=== PATIENT | female | born 1985 | race Caucasian/White ===

== ENCOUNTER → 2020-02-24 09:02 | Outpatient (CLI) | payer BC, SELFPAY ==
[2020-02-24 10:13] LABS: Add Manual Diff / Slide Review NO; Basophils Absolute Auto 0 /uL (0-100); Basophils Percent Auto 0.4 % (0-2); Eosinophils Absolute Auto 100 /uL (0-450); Eosinophils Percent Auto 1.2 % (2-4); Hemoglobin 14.1 g/dL (12.0-16.0); Lymphocytes Absolute Auto 1900 /uL (1100-4500); Lymphocytes Percent Auto 22.1 % (25-40); Mean Corpuscular HGB Conc 34.3 % (30-36); Mean Corpuscular Hemoglobin 30.6 PG (26-34); Mean Corpuscular Volume 89.2 fL (80-100); Monocytes Absolute Auto 600 /uL (0-900); Monocytes Percent Auto 7.3 % (3-14); Neutrophils Absolute Auto 5900 /uL (1500-7000); Platelet Count 273 X10^3/uL (150-400); Red Cell Distribution Width 13.2 % (11.6-14.8); White Blood Cell Count 8.6 X10^3/uL (4.5-11.0)
[2020-02-24 10:43] LABS: Alanine Aminotransferase 35 IU/L (<35); Albumin Globulin Ratio 1.2 (1.0-2.8); Alkaline Phosphatase 84 U/L (38-126); Aspartate Aminotransferase 27 IU/L (14-36); BUN Creatinine Ratio 11.9 (6-22); Bilirubin Total 0.4 mg/dL (0.2-1.3); Blood Urea Nitrogen 7 mg/dL (7-17); Carbon Dioxide 27 mmol/L (22-32); Chloride 105 mmol/L (98-107); Cholesterol 221 mg/dL (140-199); Estimated Glomerular Filt Rate > 60.0 mL/min (>60); Globulin 3.3 g/dL (1.7-4.1); Glucose 98 mg/dL (70-100); HDL Cholesterol 81 mg/dL (40-60); HEMOLYSIS < 15 (0-50); LDL Cholesterol Calculated 120 mg/dL (<100); Potassium 4.6 mmol/L (3.4-5.1); Sodium 136 mmol/L (137-145); Total Protein 7.3 g/dL (6.3-8.2); Triglycerides 101 mg/dL (35-150)
[2020-02-24 11:05] LABS: Free T4, Direct Thyroxine 0.87 ng/dL (0.78-2.19)
[2020-02-24 11:19] LABS: Thyroid Stimulating Hormone 1.43 uIU/mL (0.47-4.68)
== END ==
PROVIDERS: PCP Registered Nurse; Referring Provider Registered Nurse; Visit Provider Registered Nurse
DX: F41.8 Other specified anxiety disorders (principal); Z79.899 Other long term (current) drug therapy; Z82.49 Family history of ischemic heart disease and other diseases of the circulatory system
CPT/HCPCS: 36415; 80053; 80061; 84439; 84443; 85025

== ENCOUNTER → 2020-03-03 09:31 | Outpatient (CLI) | payer BC, SELFPAY ==
[2020-03-03 10:51] LABS: COVID19 -Nasal RAPID Negative (Negative)
== END ==
PROVIDERS: PCP Registered Nurse; Visit Provider Nurse Practitioner
DX: Z20.828 Contact with and (suspected) exposure to other viral communicable diseases (principal); R05 Cough
CPT/HCPCS: 87635

== ENCOUNTER → 2020-04-14 09:21 | Outpatient (CLI) | payer BC, SELFPAY ==
--- NOTE | 2020-04-14 09:24 | DI.US.S_ITS ---
PROCEDURE: US PELVIC COMPLETE INDICATIONS: ENDOMETRIOSIS TECHNIQUE: Real-time scanning was performed of the pelvic organs, with image documentation. Additional endovaginal scanning was necessary due to incomplete visualization of the adnexal and endometrial structures by transabdominal scanning. COMPARISON: None. FINDINGS: Uterus: Uterus is normal in size at 6.1 x 3.6 x 2.5 cm. The endometrium measures 5 mm in combined thickness. Ovaries: The right ovary measures 2.9 x 2.1 x 1.7 cm. The left ovary measures 3.9 x 1.4 x 1.5 cm. The ovaries have a normal sonographic appearance. No adnexal masses are seen. Normal appearing arterial waveforms are confirmed to each ovary. Other: No pathologic free abdominal or pelvic fluid. IMPRESSION: Unremarkable pelvic ultrasound. Normal appearing ovaries. No lolis endometriomas can be seen. Dictated by: Marcell Matthews M.D. on 04/14/2020 at 10:00 Approved by: Marcell Matthews M.D. on 04/14/2020 at 10:01
== END ==
PROVIDERS: PCP Registered Nurse; Referring Provider Obstetrics & Gynecology; Visit Provider Obstetrics & Gynecology
DX: N80.9 Endometriosis, unspecified (principal); Z87.42 Personal history of other diseases of the female genital tract
CPT/HCPCS: 76830; 76856

== ENCOUNTER → 2020-04-16 12:19 | Outpatient (CLI) | payer BC, SELFPAY ==
--- NOTE | 2020-04-16 12:27 | DI.RAD.S_ITS ---
PROCEDURE: XR ELBOW LT MIN 3V INDICATIONS: pain TECHNIQUE: 3 views of the elbow were acquired. COMPARISON: None. FINDINGS: Bones: No fractures or dislocations. No suspicious bony lesions. Soft tissues: No elbow joint effusion. No suspicious soft tissue calcifications. IMPRESSION: Normal left elbow Dictated by: Carlos Melgar M.D. on 04/16/2020 at 12:53 Approved by: Carlos Melgar M.D. on 04/16/2020 at 12:54
--- NOTE | 2020-04-16 12:27 | DI.RAD.S_ITS ---
PROCEDURE: XR SHOULDER RT MIN 2V INDICATIONS: right shoulder pain TECHNIQUE: 3 views of the shoulder were acquired. COMPARISON: None. FINDINGS: Bones: No fractures or dislocations. No suspicious bony lesions. Visualized ribs appear intact. Soft tissues: No suspicious soft tissue calcifications. IMPRESSION: Normal right shoulder Dictated by: Carlos Melgar M.D. on 04/16/2020 at 12:54 Approved by: Carlos Melgar M.D. on 04/16/2020 at 12:55
--- NOTE | 2020-04-16 12:27 | DI.RAD.S_ITS ---
PROCEDURE: XR ELBOW RT MIN 3V INDICATIONS: pain TECHNIQUE: 3 views of the elbow were acquired. COMPARISON: None. FINDINGS: Bones: No fractures or dislocations. No suspicious bony lesions. Soft tissues: No elbow joint effusion. No suspicious soft tissue calcifications. IMPRESSION: Normal right elbow. Dictated by: Carlos Melgar M.D. on 04/16/2020 at 12:52 Approved by: Carlos Melgar M.D. on 04/16/2020 at 12:53
[2020-04-16 13:35] LABS: Alanine Aminotransferase 15 IU/L (<35); Albumin 4.2 g/dL (3.5-5.0); Albumin Globulin Ratio 1.2 (1.0-2.8); Alkaline Phosphatase 88 U/L (38-126); Aspartate Aminotransferase 24 IU/L (14-36); BUN Creatinine Ratio 12.7 (6-22); Bilirubin Total 0.4 mg/dL (0.2-1.3); Blood Urea Nitrogen 8 mg/dL (7-17); C-Reactive Protein Quant 1.1 mg/dL (<1.0); Calcium 8.9 mg/dL (8.4-10.2); Carbon Dioxide 25 mmol/L (22-32); Chloride 105 mmol/L (98-107); Estimated Glomerular Filt Rate > 60.0 mL/min (>60); Globulin 3.6 g/dL (1.7-4.1); Glucose 95 mg/dL (70-100); HEMOLYSIS < 15 (0-50); Potassium 4.1 mmol/L (3.4-5.1); Sodium 136 mmol/L (137-145); Total Protein 7.8 g/dL (6.3-8.2)
[2020-04-16 13:42] LABS: Rheumatoid Factor < 8.6 IU/mL (<12.0)
[2020-04-16 13:47] LABS: Erythrocyte Sedimentation Rate 11 MM/HR (0-20)
[2020-04-19 14:43] LABS: ANA Screen, IFA Negative (.)
== END ==
PROVIDERS: PCP Registered Nurse; Referring Provider Registered Nurse; Visit Provider Registered Nurse
DX: M25.521 Pain in right elbow (principal); M25.511 Pain in right shoulder; M25.522 Pain in left elbow; M25.50 Pain in unspecified joint; R74.8 Abnormal levels of other serum enzymes
CPT/HCPCS: 36415; 73030; 73080; 80053; 85651; 86038; 86140; 86430

== ENCOUNTER → 2020-06-18 07:26 | Outpatient (CLI) | payer BC, SELFPAY ==
[2020-06-18 09:50] LABS: Cholesterol 147 mg/dL (140-199); HDL Cholesterol 84 mg/dL (40-60); LDL Cholesterol Calculated 43 mg/dL (<100); Triglycerides 99 mg/dL (35-150)
== END ==
PROVIDERS: PCP Registered Nurse; Referring Provider Registered Nurse; Visit Provider Registered Nurse
DX: Z82.49 Family history of ischemic heart disease and other diseases of the circulatory system (principal)
CPT/HCPCS: 36415; 80061

== ENCOUNTER → 2020-10-08 17:33 | Outpatient (CLI) | payer BC, SELFPAY ==
[2020-10-08 19:04] LABS: COVID19 -Nasal RAPID Negative (Negative)
== END ==
PROVIDERS: PCP Registered Nurse; Referring Provider Physician Assistant; Visit Provider Physician Assistant
DX: Z20.822 Contact with and (suspected) exposure to COVID-19 (principal)
CPT/HCPCS: 87635

== ENCOUNTER 2021-02-27 12:54 | Emergency (ER) | payer BC, SELFPAY ==
[2021-02-27 13:01] VITALS: BP 157/95; PULSE 133; RESP 18; TEMP 36.2; O2SAT 99; BMI 32.5
[2021-02-27] MEDS: SODIUM CHLORIDE 0.9% 1,000 ML 1000 ML IV (13:12)
[2021-02-27] MEDS: ONDANSETRON 4 MG/2 ML INJ IV (13:12)
--- NOTE | 2021-02-27 13:14 | ED_ITS ---
HPI - Nausea/Vomiting/Diarrhea <Tigre Small PA-C - Last Filed: 02/27/21 17:51> General Chief complaint: Nausea/Vomiting/Diarrhea Stated complaint: SUSPECTS FOOD POISONING Time Seen by Provider: 02/27/21 12:57 History of Present Illness HPI Narrative: Patient is a 35-year-old female presenting to the emergency department today for an evaluation of abdominal cramping, nausea, vomiting, and diarrhea. Patient states she awoke at 5:00 a.m. this morning with nonbloody diarrhea, noting that she also began to experience abdominal cramping, nausea, and nonbloody nonbilious vomiting. Patient explains that Sunday night she when out for dinner and did the seafood that she believes may have been undercooked. She states that she feels she may have food poisoning and notes that she had similar symptoms years ago. Patient denies fever, cough, shortness of breath, chest pain, hematochezia, hematemesis, dysuria hematuria. No other concerns were voiced at this time. Related Data Home Medications Medication Instructions Recorded Confirmed sertraline 100 mg tablet 200 mg PO DAILY tab 02/24/20 10/08/20 valacyclovir 1 gram tablet 1,000 mg PO DAILY 02/24/20 10/08/20 (Valtrex) Previous Rx's Medication Instructions Recorded drospirenone 3 mg-ethinyl 1 tab PO DAILY #84 tab 03/11/20 estradiol 0.02 mg tablet (GABBY (28)) atorvastatin 20 mg tablet 20 mg PO BEDTIME 30 Days #30 tab 06/20/20 dicyclomine 20 mg tablet 20 mg PO BID #20 tab 02/27/21 dicyclomine 20 mg tablet 20 mg PO BID #20 tab 02/27/21 ondansetron HCl 4 mg tablet 4 mg PO Q8H PRN #20 tab 02/27/21 (Zofran) ondansetron HCl 4 mg tablet 4 mg PO Q8H PRN #20 tab 02/27/21 (Zofran) Allergies Allergy/AdvReac Type Severity Reaction Status Date / Time No Known Drug Allergies Allergy Unverified 10/08/20 18:35 Review of Systems <Tigre Small PA-C - Last Filed: 02/27/21 17:51> Constitutional Constitutional: Denies chills, Denies fatigue, Denies fever(s), Denies frequent falls, Denies lethargy and Denies weakness Eyes Eyes: Denies loss of vision ENT Ears, Nose, Mouth, and Throat: Denies dizziness and Denies neck pain Cardiovascular Cardiovascular: Denies chest pain, Denies irregular heart rhythm, Denies lightheadedness, Denies palpitations, Denies dyspnea, Denies dyspnea on exertion and Denies orthopnea Respiratory Respiratory: Denies cough, Denies dyspnea, Denies dyspnea on exertion and Denies wheezing Gastrointestinal Gastrointestinal: Reports abdominal pain (Cramping), Denies melena, Denies change in bowel habits, Denies coffee ground emesis, Reports diarrhea, Reports nausea and Reports vomiting Genitourinary Genitourinary: Denies flank pain, Denies urinary incontinence and Denies urinary urgency Musculoskeletal Musculoskeletal: Denies back pain, Denies muscle weakness, Denies neck pain, Denies numbness and Denies tingling Integumentary/Breasts Skin/Breast: Denies pruritus, Denies erythema, Denies rash and Denies wounds Neurologic Neurologic: Denies behavioral changes, Denies confusion, Denies dizziness, Denies frequent falls, Denies loss of vision, Denies numbness, Denies tingling and Denies weakness Psychiatric Psychiatric: Denies behavioral changes and Denies confusion Endocrine Endocrine: Denies fatigue and Denies palpitations Allergic/Immunologic Allergic/Immunologic: Denies wheezing Patient History <Tigre Small PA-C - Last Filed: 02/27/21 17:51> Medical History Abnormal Pap smear of cervix (~2018) Acne (~1996) Anxiety with depression (~1998) Chronic foot pain (~2003) Cough Endometriosis (~1998) Herpes (~2008) Human papilloma virus (~2018) Near sighted Painful menstrual periods (~1996) Pertussis (~2006) PTSD (post-traumatic stress disorder) (~2018) Surgical History Anesthesia History of surgery on arm (~1992) Family History Father Hyperlipidemia Hypertension Grandfather Dementia Mental health problem Grandmother Cancer Grandfather Hypertension Hyperlipidemia Grandmother Diabetes mellitus Social History Smoking Status: Current some day smoker Smoking Status: Current some day smoker Exam <Tigre Small PA-C - Last Filed: 02/27/21 17:51> Narrative Exam Narrative: GENERAL: 35 year old patient appears stated age. Well-developed patient, in mild distress. HEAD: Atraumatic. Normocephalic. EYES: Pupils equal round and reactive. Extraocular motions intact. No scleral icterus. No injection or drainage. ENT: Nose without bleeding, purulent drainage. Throat without erythema, tonsillar hypertrophy or exudate. Airway patent. NECK: Trachea midline. Non tender CARDIOVASCULAR: Regular rate and rhythm without murmurs, gallops, or rubs. RESPIRATORY: Clear to auscultation. Breath sounds equal bilaterally. No wheezes, rales, or rhonchi. GASTROINTESTINAL: Abdomen soft, nondistended. Mild tenderness to palpation to the left upper quadrant, right lower quadrant. No masses appreciated. Bowel sounds present. EXTREMITIES: No edema or joint tenderness. BACK: Nontender without deformity or crepitance. No flank tenderness. NEURO: AOx3. SKIN: No rash or erythema of visible areas Initial Vital Signs Initial Vital Signs: Vital Signs Temperature 97.2 F L 02/27/21 13:01 Pulse Rate 133 H 02/27/21 13:01 Respiratory Rate 18 02/27/21 13:01 Blood Pressure 157/95 H 02/27/21 13:01 Pulse Oximetry 99 02/27/21 13:01 <Rufus Johnson DO - Last Filed: 03/03/21 03:41> Initial Vital Signs Initial Vital Signs: Vital Signs Temperature 97.2 F L 02/27/21 13:01 Pulse Rate 133 H 02/27/21 13:01 Respiratory Rate 18 02/27/21 13:01 Blood Pressure 157/95 H 02/27/21 13:01 Pulse Oximetry 99 02/27/21 13:01 Course <Tigre Small PA-C - Last Filed: 02/27/21 17:51> Course Course Narrative: 1000 mL bolus of normal saline, IV Zofran administered. COVID swab, CBC, CMP ordered. Patient states she is feeling better after saline bolus, Bentyl, and Zofran. Orders Ordered: Discontinued Medications Dicyclomine HCl (Dicyclomine 10 Mg Capsule) 20 mg PO NOW ONE Stop: 02/27/21 14:04 Last Admin: 02/27/21 14:10 Dose: 20 mg Documented by: JOHANNY Sodium Chloride (Normal Saline 0.9%) 1,000 mls @ 1,000 mls/hr IV BOLUS ONE Stop: 02/27/21 14:00 Last Infusion: 02/27/21 14:05 Dose: 0 mls/hr Documented by: Admin: 02/27/21 13:12 Dose: 1,000 mls/hr Documented by: JOHANNY Ondansetron HCl (Ondansetron 4 Mg/2 Ml Inj) 4 mg IV NOW ONE Stop: 02/27/21 13:02 Last Admin: 02/27/21 13:12 Dose: 4 mg Documented by: JOHANNY Vital Signs Vital signs: Vital Signs - 8 hr 02/27/21 13:01 02/27/21 14:30 Temperature 97.2 F L Pulse Rate 133 H 112 H Respiratory Rate 18 18 Blood Pressure 157/95 H 128/78 Pulse Oximetry 99 98 <Rufus Johnson, DO - Last Filed: 03/03/21 03:41> Orders Ordered: Discontinued Medications Dicyclomine HCl (Dicyclomine 10 Mg Capsule) 20 mg PO NOW ONE Stop: 02/27/21 14:04 Last Admin: 02/27/21 14:10 Dose: 20 mg Documented by: JOHANNY Sodium Chloride (Normal Saline 0.9%) 1,000 mls @ 1,000 mls/hr IV BOLUS ONE Stop: 02/27/21 14:00 Last Infusion: 02/27/21 14:05 Dose: 0 mls/hr Documented by: Admin: 02/27/21 13:12 Dose: 1,000 mls/hr Documented by: JOHANNY Ondansetron HCl (Ondansetron 4 Mg/2 Ml Inj) 4 mg IV NOW ONE Stop: 02/27/21 13:02 Last Admin: 02/27/21 13:12 Dose: 4 mg Documented by: JOHANNY Vital Signs Vital signs: Vital Signs - 8 hr 02/27/21 13:01 02/27/21 14:30 Temperature 97.2 F L Pulse Rate 133 H 112 H Respiratory Rate 18 18 Blood Pressure 157/95 H 128/78 Pulse Oximetry 99 98 MDM - Nausea/Vomiting/Diarrhea <Tigre Small PA-C - Last Filed: 02/27/21 17:51> Lab Data Result diagrams: 02/27/21 13:10 02/27/21 13:10 Labs: Lab Results 02/27/21 02/27/21 Range/Units 13:10 13:10 WBC 22.1 H (4.5-11.0) X10^3/uL RBC 5.35 H (4.0-5.2) X10^6/uL Hgb 15.9 (12.0-16.0) g/dL Hct 46.6 H (36-46) % MCV 87.1 (80-100) fL MCH 29.7 (26-34) PG MCHC 34.1 (30-36) % RDW 12.7 (11.6-14.8) % Plt Count 390 (150-400) X10^3/uL Neut % (Auto) 91.5 H (50-75) % Lymph % (Auto) 4.5 L (25-40) % [place] % (Auto) 3.7 (3-14) % Eos % (Auto) 0.1 L (2-4) % Baso % (Auto) 0.2 (0-2) % Neut # (Auto) 81008 H (3055-4139) /uL Lymph # (Auto) 1000 L (9273-6035) /uL [place] # (Auto) 800 (0-900) /uL Eos # (Auto) 0 (0-450) /uL Baso # (Auto) 0 (0-100) /uL Sodium 138 (137-145) mmol/L Potassium 4.2 (3.4-5.1) mmol/L Chloride 108 H (98-107) mmol/L Carbon Dioxide 19 L (22-32) mmol/L BUN 11 (7-17) mg/dL Creatinine 0.59 (0.52-1.04) mg/dL Estimated GFR > 60.0 (>60) mL/min BUN/Creatinine Ratio 18.6 (6-22) Glucose 143 H (70-100) mg/dL Calcium 9.5 (8.4-10.2) mg/dL Total Bilirubin 0.7 (0.2-1.3) mg/dL AST 32 (14-36) IU/L ALT 24 (<35) IU/L Alkaline Phosphatase 76 (38-126) U/L Total Protein 8.5 H (6.3-8.2) g/dL Albumin 4.6 (3.5-5.0) g/dL Globulin 3.9 (1.7-4.1) g/dL Albumin/Globulin Ratio 1.2 (1.0-2.8) MDM Narrative Medical decision making narrative: To consider food poisoning versus viral diarrhea versus infectious diarrhea versus gastroenteritis. Overall physical examination, history, and vitals reassuring. Discussed results of lab work with patient today. Instructed the patient to stay well hydrated, control her abdominal cramping with a prescription Bentyl, and control her nausea with a prescription Zofran. Patient agrees to plan and at this time feels comfortable being discharged home. Strict return precautions were discussed with patient prior to discharge. <Rufus Johnson, - Last Filed: 03/03/21 03:41> Lab Data Labs: Lab Results 02/27/21 02/27/21 Range/Units 13:10 13:10 WBC 22.1 H (4.5-11.0) X10^3/uL RBC 5.35 H (4.0-5.2) X10^6/uL Hgb 15.9 (12.0-16.0) g/dL Hct 46.6 H (36-46) % MCV 87.1 (80-100) fL MCH 29.7 (26-34) PG MCHC 34.1 (30-36) % RDW 12.7 (11.6-14.8) % Plt Count 390 (150-400) X10^3/uL Neut % (Auto) 91.5 H (50-75) % Lymph % (Auto) 4.5 L (25-40) % [place] % (Auto) 3.7 (3-14) % Eos % (Auto) 0.1 L (2-4) % Baso % (Auto) 0.2 (0-2) % Neut # (Auto) 27748 H (0199-0877) /uL Lymph # (Auto) 1000 L (3358-5086) /uL [place] # (Auto) 800 (0-900) /uL Eos # (Auto) 0 (0-450) /uL Baso # (Auto) 0 (0-100) /uL Sodium 138 (137-145) mmol/L Potassium 4.2 (3.4-5.1) mmol/L Chloride 108 H (98-107) mmol/L Carbon Dioxide 19 L (22-32) mmol/L BUN 11 (7-17) mg/dL Creatinine 0.59 (0.52-1.04) mg/dL Estimated GFR > 60.0 (>60) mL/min BUN/Creatinine Ratio 18.6 (6-22) Glucose 143 H (70-100) mg/dL Calcium 9.5 (8.4-10.2) mg/dL Total Bilirubin 0.7 (0.2-1.3) mg/dL AST 32 (14-36) IU/L ALT 24 (<35) IU/L Alkaline Phosphatase 76 (38-126) U/L Total Protein 8.5 H (6.3-8.2) g/dL Albumin 4.6 (3.5-5.0) g/dL Globulin 3.9 (1.7-4.1) g/dL Albumin/Globulin Ratio 1.2 (1.0-2.8) Discharge Plan Departure Patient Disposition: Home Clinical Impression: Vomiting and diarrhea, Dehydration Instructions: DI for Vomiting -- Adult Activity Restrictions/Additional Instructions: *You have been diagnosed with vomiting and diarrhea, dehydration *What to do: *Please continue to take your regular medications as directed. [X] New medication prescriptions sent to your pharmacy: [facility] [ ] New medication written as a paper prescription [ ] No new medications given *Please follow up with your primary care provider in 2-3 days, call for an appointment. Let them know you were seen in the Emergency Department and that we ask that you be seen in follow up. We will electronically transmit a record of today's note if your PCP is in our system. *Please continue taking Imodium for your diarrhea. Discontinue use if you notice blood in your stool. *If you do not have a primary care provider please contact the [facility] Resource line at [phone]. They will ask some questions about your medical history and help get you set up with a doctor in the community. *Return to Emergency Department if you should have any new, worsening or concerning symptoms, such as fever greater than 101 F, shaking chills, worsening pain, persistent vomiting or other bothersome symptoms. Prescriptions: New ondansetron HCl [Zofran] 4 mg tablet 4 mg PO Q8H PRN (Reason: nausea and vomiting) Qty: 20 0RF dicyclomine 20 mg tablet 20 mg PO BID Qty: 20 0RF dicyclomine 20 mg tablet 20 mg PO BID Qty: 20 0RF ondansetron HCl [Zofran] 4 mg tablet 4 mg PO Q8H PRN (Reason: nausea and vomiting) Qty: 20 0RF No Action atorvastatin 20 mg tablet 20 mg PO BEDTIME 30 Days Qty: 30 2RF valacyclovir [Valtrex] 1 gram tablet 1,000 mg PO DAILY 0RF sertraline 100 mg tablet 200 mg PO DAILY 0RF drospirenone-ethinyl estradiol [GABBY (28)] 3-0.02 mg tablet 1 tab PO DAILY Qty: 84 4RF Rx Instructions: take once daily at same time every day. Referrals: Daljit Lozano ARNP [Primary Care Provider] - <Rufus Johnson DO - Last Filed: 03/03/21 03:41> Cosign ED Attending Cosignature Attestation: I was immediately available in the department for consultation. This documentation has been reviewed and I agree with assessment and plan. Supervised by Rufus Johnson DO
[2021-02-27 13:27] LABS: Add Manual Diff / Slide Review NO; Basophils Absolute Auto 0 /uL (0-100); Basophils Percent Auto 0.2 % (0-2); Eosinophils Absolute Auto 0 /uL (0-450); Eosinophils Percent Auto 0.1 % (2-4); Hematocrit 46.6 % (36-46); Hemoglobin 15.9 g/dL (12.0-16.0); Lymphocytes Absolute Auto 1000 /uL (1100-4500); Lymphocytes Percent Auto 4.5 % (25-40); Mean Corpuscular HGB Conc 34.1 % (30-36); Mean Corpuscular Hemoglobin 29.7 PG (26-34); Mean Corpuscular Volume 87.1 fL (80-100); Monocytes Absolute Auto 800 /uL (0-900); Monocytes Percent Auto 3.7 % (3-14); Neutrophils Absolute Auto 20200 /uL (1500-7000); Neutrophils Percent Auto 91.5 % (50-75); Platelet Count 390 X10^3/uL (150-400); Red Blood Cell Count 5.35 X10^6/uL (4.0-5.2); Red Cell Distribution Width 12.7 % (11.6-14.8); White Blood Cell Count 22.1 X10^3/uL (4.5-11.0)
[2021-02-27 13:32] LABS: Alanine Aminotransferase 24 IU/L (<35); Albumin 4.6 g/dL (3.5-5.0); Albumin Globulin Ratio 1.2 (1.0-2.8); Alkaline Phosphatase 76 U/L (38-126); Aspartate Aminotransferase 32 IU/L (14-36); BUN Creatinine Ratio 18.6 (6-22); Bilirubin Total 0.7 mg/dL (0.2-1.3); Blood Urea Nitrogen 11 mg/dL (7-17); Calcium 9.5 mg/dL (8.4-10.2); Carbon Dioxide 19 mmol/L (22-32); Chloride 108 mmol/L (98-107); Estimated Glomerular Filt Rate > 60.0 mL/min (>60); Globulin 3.9 g/dL (1.7-4.1); Glucose 143 mg/dL (70-100); HEMOLYSIS 26 (0-50); Potassium 4.2 mmol/L (3.4-5.1); Sodium 138 mmol/L (137-145); Total Protein 8.5 g/dL (6.3-8.2)
[2021-02-27] MEDS: DICYCLOMINE 10 MG CAPSULE 20 MG PO (14:10)
[2021-02-27 14:30] VITALS: BP 128/78; PULSE 112; RESP 18; O2SAT 98
== END 2021-02-27 14:39 | disposition home or self-care (01) ==
PROVIDERS: Emergency Provider Physician Assistant; PCP Registered Nurse
DX: R11.2 Nausea with vomiting, unspecified (principal); R19.7 Diarrhea, unspecified; E86.0 Dehydration; R10.9 Unspecified abdominal pain
CPT/HCPCS: 36415; 80053; 85025; 96361; 96374; 99284; J2405

== ENCOUNTER → 2021-06-03 09:14 | Outpatient (CLI) | payer BC, SELFPAY ==
--- NOTE | 2021-06-03 09:21 | DI.RAD.S_ITS ---
PROCEDURE: XR CHEST 2V INDICATIONS: COUGH TECHNIQUE: 2 views of the chest were acquired. COMPARISON: None. FINDINGS: Surgical changes and devices: None. Lungs and pleura: Lungs are clear. No pleural effusions or pneumothorax. Mediastinum: Mediastinal contours are normal. Heart size is normal. Bones and chest wall: No suspicious bony abnormalities. Soft tissues appear unremarkable. IMPRESSION: No acute cardiopulmonary abnormality. Dictated by: Andrew Wilson M.D. on 06/03/2021 at 10:25 Approved by: Andrew Wilson M.D. on 06/03/2021 at 10:26
== END ==
PROVIDERS: PCP Registered Nurse; Referring Provider Physician Assistant; Visit Provider Physician Assistant
DX: R06.02 Shortness of breath (principal); R05.9 Cough, unspecified
CPT/HCPCS: 71046